=== PATIENT | male | born 1975 | race Caucasian/White ===

== ENCOUNTER 2018-02-08 15:34 | Inpatient (IN) | payer OTHER ==
[~2018-02-08] VITALS: Ht 175.3 cm; Wt 108.8 kg
[2018-02-08] MEDS ORDERED: DEXTROSE 50%-WATER 25 GM/50 ML SYRINGE IVP ONE ×3 (15:51→17:45)
[2018-02-08] MEDS ORDERED: DEXTROSE 10%-WATER 500 ML IV ONE (16:00)
[2018-02-08 16:13] LABS: BASOPHILS % (AUTO) 0.6 % (0.0-2.0); EOSINOPHILS % (AUTO) 1.9 % (1.0-6.0); HEMATOCRIT 49.8 % (41-53); HEMOGLOBIN 17.3 g/dL (13.5-17.5); LYMPHOCYTES # (AUTO) 2.1 K/uL (1.0-4.8); LYMPHOCYTES % (AUTO) 25.2 % (22.0-44.0); MEAN CORPUSCULAR HGB CONC 34.8 G/dL (31.0-37.0); MEAN CORPUSCULAR VOLUME 86 fL (80-100); MONOCYTES # (AUTO) 0.5 K/uL (0.1-1.0); MONOCYTES % (AUTO) 6.4 % (2.0-9.0); NEUTROPHILS # (AUTO) 5.4 K/uL (1.8-7.7); NEUTROPHILS % (AUTO) 65.9 % (40.0-70.0); PLATELET COUNT (AUTO) 229 K/uL (150-450); RED BLOOD CELL COUNT(AUTO) 5.78 MIL/uL (4.50-5.90); RED CELL DISTRIBUTION WIDTH 13.7 % (11.5-14.5)
[2018-02-08 16:19] LABS: GLUCOSE,POINT OF CARE 77 MG/DL (70-110)
[2018-02-08 16:23] LABS: ANION GAP 9 mmol/L (8-16); CARBON DIOXIDE 29 mmol/L (22-29); CHLORIDE 105 mmol/L (98-107); CREATININE 1.09 mg/dL (0.60-1.30); GLOMERULAR FILTR. RATE CALC > 60 mL/min (>60); GLUCOSE,RANDOM 54 mg/dL (70-110); POTASSIUM 3.2 mmol/L (3.5-5.1); SODIUM SERUM 143 mmol/L (136-145); UREA NITROGEN, BLOOD 15 mg/dL (7-18)
[2018-02-08] MEDS ORDERED: VENL-193 PO (16:25)
[2018-02-08] MEDS ORDERED: ATOR40TA28 PO (16:25)
[2018-02-08 16:28] LABS: ALANINE AMINOTRANSFERASE 25 U/L (12-78); ALBUMIN 3.7 g/dL (3.4-5.0); ALKALINE PHOSPHATASE 83 U/L (46-116); BILIRUBIN,TOTAL 0.5 mg/dL (0.1-1.0); TOTAL PROTEIN, SERUM 7.6 g/dL (6.4-8.2)
[2018-02-08 16:30] LABS: ACETAMINOPHEN < 2 mcg/mL (10-30)
[2018-02-08] MEDS ORDERED: INSU100V SQ (16:32)
[2018-02-08] MEDS ORDERED: INSLAN SQ (16:32)
[2018-02-08 16:34] LABS: GLUCOSE,POINT OF CARE 132 MG/DL (70-110)
[2018-02-08 16:45] LABS: ASPARTATE AMINOTRANSFERASE 12 U/L (15-37)
[2018-02-08 16:49] LABS: SALICYLATE < 2.8 mg/dL (2.8-20.0)
[2018-02-08 16:59] LABS: GLUCOSE,POINT OF CARE 79 MG/DL (70-110)
[2018-02-08 17:24] LABS: GLUCOSE,POINT OF CARE 61 MG/DL (70-110)
[2018-02-08] MEDS ORDERED: VENL-68 PO (17:35)
[2018-02-08 17:39] LABS: GLUCOSE,POINT OF CARE 53 MG/DL (70-110)
[2018-02-08 17:58] LABS: GLUCOSE,POINT OF CARE 209 MG/DL (70-110)
[2018-02-08 18:20] LABS: GLUCOSE,POINT OF CARE 157 MG/DL (70-110)
[2018-02-08] MEDS ORDERED: 0.9% SODIUM CHLORIDE 10 ML SYRINGE IVP PRN (18:30)
[2018-02-08] MEDS ORDERED: ACETAMINOPHEN 325 MG TABLET PO PRN ×2 (18:30→19:30)
[2018-02-08] MEDS ORDERED: POTASSIUM CHLORIDE 20 MEQ ER TABLET PO ONE (18:30)
[2018-02-08 18:49] LABS: GLUCOSE,POINT OF CARE 119 MG/DL (70-110)
[2018-02-08 19:09] LABS: GLUCOSE,POINT OF CARE 104 MG/DL (70-110)
[2018-02-08] MEDS ORDERED: IPRATROPIUM BROMIDE 0.5 MG/2.5 ML NEB SOLUTION NEB PRN (19:30)
[2018-02-08] MEDS ORDERED: MAGNESIUM OXIDE 400 MG TABLET PO PRN (19:30)
[2018-02-08] MEDS ORDERED: MAGNESIUM SULFATE 4 GM/WATER 100 ML IV PRN (19:30)
[2018-02-08] MEDS ORDERED: POTASSIUM CHL 10 MEQ/WATER 50 ML IV PRN (19:30)
[2018-02-08] MEDS ORDERED: MAGNESIUM HYDROXIDE SUSPENSION 30 ML UDCUP PO PRN (19:30)
[2018-02-08] MEDS ORDERED: MAGNESIUM SULFATE 2 GM/WATER 50 ML IV PRN (19:30)
[2018-02-08] MEDS ORDERED: ALBUTEROL SULFATE 2.5 MG/0.5 ML NEB SOLUTION NEB PRN (19:30)
[2018-02-08] MEDS ORDERED: HYDROCODONE/ACETAMINOPHEN 5-325 MG TABLET PO PRN (19:30)
[2018-02-08] MEDS ORDERED: ZOLPIDEM TARTRATE 5 MG TABLET PO PRN (19:30)
[2018-02-08] MEDS ORDERED: BISACODYL 10 MG RECTAL RECTAL SUPPOSITORY PR PRN (19:30)
[2018-02-08] MEDS ORDERED: POTASSIUM CHLORIDE 20 MEQ ER TABLET PO PRN (19:30)
[2018-02-08] MEDS ORDERED: ONDANSETRON HCL 4 MG/2 ML VIAL IVP PRN (19:30)
[2018-02-08 19:34] LABS: GLUCOSE,POINT OF CARE 80 MG/DL (70-110)
[2018-02-08 20:00] VITALS: BP 120/67
[2018-02-08] MEDS: DEXTROSE 50%-WATER 25 GM/50 ML SYRINGE IVP PRN (20:10)
[2018-02-08] MEDS: ATORVASTATIN CALCIUM 20 MG TABLET PO SCH (20:45)
[2018-02-08] MEDS: HEPARIN SODIUM,PORCINE 5,000 UNITS/ML VIAL SQ SCH (21:03)
[2018-02-08 21:10] LABS: GLUCOSE,POINT OF CARE 44 MG/DL (70-110)
[2018-02-08 21:10] LABS: GLUCOSE,POINT OF CARE 148 MG/DL (70-110)
[2018-02-09] VITALS: BP 103/54
[2018-02-09 00:53] LABS: GLUCOSE,POINT OF CARE 81 MG/DL (70-110)
[2018-02-09] MEDS: DEXTROSE 50%-WATER 25 GM/50 ML SYRINGE IVP PRN (01:16)
[2018-02-09 04:00] VITALS: BP 124/56
[2018-02-09 04:32] LABS: HEMOGLOBIN 16.1 g/dL (13.5-17.5); LYMPHOCYTES # (AUTO) 1.7 K/uL (1.0-4.8); LYMPHOCYTES % (AUTO) 19.1 % (22.0-44.0); MEAN CORPUSCULAR HEMOGLOBIN 29.9 pg (26.0-34.0); MEAN CORPUSCULAR HGB CONC 34.3 G/dL (31.0-37.0); MEAN CORPUSCULAR VOLUME 87 fL (80-100); MONOCYTES # (AUTO) 0.8 K/uL (0.1-1.0); MONOCYTES % (AUTO) 9.3 % (2.0-9.0); NEUTROPHILS # (AUTO) 6.2 K/uL (1.8-7.7); NEUTROPHILS % (AUTO) 68.6 % (40.0-70.0); PLATELET COUNT (AUTO) 219 K/uL (150-450); RED BLOOD CELL COUNT(AUTO) 5.38 MIL/uL (4.50-5.90); RED CELL DISTRIBUTION WIDTH 13.5 % (11.5-14.5)
[2018-02-09 04:42] LABS: HEMOGLOBIN A1C 6.9 % (4.5-6.2)
[2018-02-09 04:57] LABS: ALANINE AMINOTRANSFERASE 22 U/L (12-78); ALKALINE PHOSPHATASE 66 U/L (46-116); ANION GAP 6 mmol/L (8-16); ASPARTATE AMINOTRANSFERASE 13 U/L (15-37); BILIRUBIN,TOTAL 0.6 mg/dL (0.1-1.0); CALCIUM, TOTAL 8.3 mg/dL (8.8-10.5); CARBON DIOXIDE 28 mmol/L (22-29); CHLORIDE 103 mmol/L (98-107); CHOL/HDL RATIO 2.9 (4.2-7.3); CHOLESTEROL 114 mg/dL (131-200); CREATININE 0.81 mg/dL (0.60-1.30); GLOMERULAR FILTR. RATE CALC > 60 mL/min (>60); GLUCOSE,RANDOM 258 mg/dL (70-110); HDL CHOLESTEROL 39 mg/dL (40-60); LDL CHOL (CALC.) 52 mg/dL (0-130); POTASSIUM 4.2 mmol/L (3.5-5.1); SODIUM SERUM 137 mmol/L (136-145); THYROID STIMULATING HORMONE 0.55 uIU/mL (0.36-3.74); TOTAL PROTEIN, SERUM 6.3 g/dL (6.4-8.2); TRIGLYCERIDES 113 mg/dL (15-150); UREA NITROGEN, BLOOD 12 mg/dL (7-18)
[2018-02-09] MEDS ORDERED: DEXTROSE 50%-WATER 25 GM/50 ML SYRINGE IVP PRN (05:45)
[2018-02-09] MEDS: INSULIN LISPRO 100 UNITS/ML SQ PRN ×4 (07:04→21:44)
[2018-02-09 08:00] VITALS: BP 136/76
[2018-02-09] MEDS: PANTOPRAZOLE SODIUM 40 MG DR TABLET PO SCH (08:28)
[2018-02-09] MEDS: HEPARIN SODIUM,PORCINE 5,000 UNITS/ML VIAL SQ SCH ×2 (08:29→21:00)
[2018-02-09 08:57] LABS: AMPHET/METH SCREEN,URINE NEGATIVE (NEGATIVE); BARBITURATE SCREEN, URINE NEGATIVE (NEGATIVE); BENZODIAZEPINES SCREEN,URINE NEGATIVE (NEGATIVE); CANNABINOID SCREEN,URINE NEGATIVE (NEGATIVE); COCAINE SCREEN,URINE NEGATIVE (NEGATIVE); METHADONE SCREEN, URINE NEGATIVE (NEGATIVE); OPIATE SCREEN,URINE NEGATIVE (NEGATIVE); PHENCYCLIDINE SCREEN,URINE NEGATIVE (NEGATIVE)
[2018-02-09] MEDS ORDERED: VENLAFAXINE HCL 150 MG ER CAPSULE PO SCH (09:00)
[2018-02-09 12:00] VITALS: BP 136/85
[2018-02-09 15:03] LABS: GLUCOSE,POINT OF CARE 310 MG/DL (70-110)
[2018-02-09 16:00] VITALS: BP 167/98
[2018-02-09 19:26] VITALS: BP 128/76
[2018-02-09] MEDS: ATORVASTATIN CALCIUM 20 MG TABLET PO SCH (20:59)
[2018-02-09] MEDS: TraZODone HCL 100 MG TABLET PO SCH (20:59)
[2018-02-10 00:44] LABS: GLUCOSE,POINT OF CARE 257 MG/DL (70-110)
[2018-02-10 04:54] LABS: GLUCOMETER DEV NAME(LOC) 6N 1E; GLUCOSE,POINT OF CARE 291 MG/DL (70-110)
[2018-02-10 05:27] VITALS: BP 109/73
[2018-02-10] MEDS: INSULIN LISPRO 100 UNITS/ML SQ PRN ×4 (06:14→20:01)
[2018-02-10 07:44] VITALS: BP 118/64
[2018-02-10] MEDS: VENLAFAXINE HCL 75 MG ER CAPSULE PO SCH (08:01)
[2018-02-10] MEDS: PANTOPRAZOLE SODIUM 40 MG DR TABLET PO SCH (08:02)
[2018-02-10] MEDS: HEPARIN SODIUM,PORCINE 5,000 UNITS/ML VIAL SQ SCH ×2 (08:02→19:55)
[2018-02-10 11:19] VITALS: BP 123/56
[2018-02-10 12:24] LABS: GLUCOSE,POINT OF CARE 289 MG/DL (70-110)
[2018-02-10 12:24] LABS: GLUCOSE,POINT OF CARE 251 MG/DL (70-110)
[2018-02-10 12:24] LABS: GLUCOSE,POINT OF CARE 264 MG/DL (70-110)
[2018-02-10 12:24] LABS: GLUCOSE,POINT OF CARE 60 MG/DL (70-110)
[2018-02-10 12:24] LABS: GLUCOSE,POINT OF CARE 193 MG/DL (70-110)
[2018-02-10 12:24] LABS: GLUCOSE,POINT OF CARE 189 MG/DL (70-110)
[2018-02-10 15:05] VITALS: BP 116/79
[2018-02-10 15:49] LABS: GLUCOMETER DEV NAME(LOC) 6N 1E; GLUCOSE,POINT OF CARE 317 MG/DL (70-110)
[2018-02-10 15:49] LABS: GLUCOMETER DEV NAME(LOC) 6N 2D; GLUCOSE,POINT OF CARE 310 MG/DL (70-110)
[2018-02-10 17:54] LABS: GLUCOMETER DEV NAME(LOC) 6N 2D; GLUCOSE,POINT OF CARE 374 MG/DL (70-110)
[2018-02-10 19:32] VITALS: BP 127/79
[2018-02-10] MEDS: ATORVASTATIN CALCIUM 20 MG TABLET PO SCH (19:55)
[2018-02-10] MEDS: TraZODone HCL 100 MG TABLET PO SCH (19:55)
[2018-02-10 20:18] LABS: GLUCOMETER DEV NAME(LOC) 6N 2D; GLUCOSE,POINT OF CARE 395 MG/DL (70-110)
[2018-02-10 23:20] VITALS: BP 118/76
[2018-02-11 04:20] VITALS: BP 108/74
[2018-02-11] MEDS: INSULIN LISPRO 100 UNITS/ML SQ PRN ×4 (06:10→20:27)
[2018-02-11 06:58] LABS: GLUCOMETER DEV NAME(LOC) 6N 2D; GLUCOSE,POINT OF CARE 344 MG/DL (70-110)
[2018-02-11 07:31] VITALS: BP 118/80
[2018-02-11] MEDS: HEPARIN SODIUM,PORCINE 5,000 UNITS/ML VIAL SQ SCH ×2 (08:27→20:26)
[2018-02-11] MEDS: VENLAFAXINE HCL 75 MG ER CAPSULE PO SCH (08:27)
[2018-02-11] MEDS: PANTOPRAZOLE SODIUM 40 MG DR TABLET PO SCH (08:27)
[2018-02-11 12:04] LABS: MAGNESIUM 1.8 mg/dL (1.80-2.40); POTASSIUM 4.5 mmol/L (3.5-5.1)
[2018-02-11 12:07] VITALS: BP 108/70
[2018-02-11 15:40] VITALS: BP 123/74
[2018-02-11 20:13] VITALS: BP 110/76
[2018-02-11] MEDS: ATORVASTATIN CALCIUM 20 MG TABLET PO SCH (20:26)
[2018-02-11] MEDS: TraZODone HCL 100 MG TABLET PO SCH (20:26)
[2018-02-11] MEDS ORDERED: INSULIN GLARGINE,HUM.REC.ANLOG 100 UNITS/ML SQ SCH (21:00)
[2018-02-11 22:43] LABS: GLUCOMETER DEV NAME(LOC) 6N 1E; GLUCOSE,POINT OF CARE 343 MG/DL (70-110)
[2018-02-11 22:44] LABS: GLUCOMETER DEV NAME(LOC) 6N 1E; GLUCOSE,POINT OF CARE 421 MG/DL (70-110)
[2018-02-12 00:25] VITALS: BP 121/74
[2018-02-12 05:41] VITALS: BP 107/68
[2018-02-12] MEDS: INSULIN LISPRO 100 UNITS/ML SQ PRN ×6 (06:34→20:36)
[2018-02-12 07:13] LABS: GLUCOMETER DEV NAME(LOC) 6N 1E; GLUCOSE,POINT OF CARE 344 MG/DL (70-110)
[2018-02-12 07:32] VITALS: BP 106/76
[2018-02-12] MEDS: VENLAFAXINE HCL 75 MG ER CAPSULE PO SCH (08:44)
[2018-02-12] MEDS: HEPARIN SODIUM,PORCINE 5,000 UNITS/ML VIAL SQ SCH ×2 (08:45→20:36)
[2018-02-12] MEDS: PANTOPRAZOLE SODIUM 40 MG DR TABLET PO SCH (08:45)
[2018-02-12 11:01] VITALS: BP 117/65
[2018-02-12] MEDS ORDERED: INSULIN GLARGINE,HUM.REC.ANLOG 100 UNITS/ML SQ ONE (12:15)
[2018-02-12] MEDS ORDERED: INSULIN LISPRO 100 UNITS/ML SQ ONE (12:30)
[2018-02-12 15:10] VITALS: BP 112/72
[2018-02-12 17:20] LABS: GLUCOMETER DEV NAME(LOC) 6N 1E; GLUCOSE,POINT OF CARE 257 MG/DL (70-110)
[2018-02-12 19:34] VITALS: BP 123/75
[2018-02-12] MEDS: ATORVASTATIN CALCIUM 20 MG TABLET PO SCH (20:36)
[2018-02-12] MEDS: TraZODone HCL 100 MG TABLET PO SCH (20:36)
[2018-02-12] MEDS ORDERED: INSULIN GLARGINE,HUM.REC.ANLOG 100 UNITS/ML SQ SCH (21:00)
[2018-02-12 21:19] LABS: GLUCOMETER DEV NAME(LOC) 6N 2D; GLUCOSE,POINT OF CARE 393 MG/DL (70-110)
[2018-02-12 21:19] LABS: GLUCOMETER DEV NAME(LOC) 6N 2D; GLUCOSE,POINT OF CARE 278 MG/DL (70-110)
[2018-02-12 21:20] LABS: GLUCOMETER DEV NAME(LOC) 6N 2D; GLUCOSE,POINT OF CARE 420 MG/DL (70-110)
[2018-02-12 22:59] LABS: GLUCOMETER DEV NAME(LOC) 6N 1E; GLUCOSE,POINT OF CARE 439 MG/DL (70-110)
[2018-02-12 22:59] LABS: GLUCOMETER DEV NAME(LOC) 6N 1E; GLUCOSE,POINT OF CARE 348 MG/DL (70-110)
[2018-02-13 00:15] VITALS: BP 111/72
[2018-02-13 04:37] VITALS: BP 108/62
[2018-02-13] MEDS: INSULIN LISPRO 100 UNITS/ML SQ PRN ×2 (05:41→11:47)
[2018-02-13 07:04] LABS: GLUCOMETER DEV NAME(LOC) 6N 2D; GLUCOSE,POINT OF CARE 297 MG/DL (70-110)
[2018-02-13 08:31] VITALS: BP 124/74
[2018-02-13] MEDS: VENLAFAXINE HCL 75 MG ER CAPSULE PO SCH (08:47)
[2018-02-13] MEDS: PANTOPRAZOLE SODIUM 40 MG DR TABLET PO SCH (08:47)
[2018-02-13] MEDS: HEPARIN SODIUM,PORCINE 5,000 UNITS/ML VIAL SQ SCH ×2 (08:47→21:54)
[2018-02-13 11:34] VITALS: BP 116/78
[2018-02-13 12:25] LABS: GLUCOMETER DEV NAME(LOC) 6N 1E; GLUCOSE,POINT OF CARE 318 MG/DL (70-110)
[2018-02-13 16:03] VITALS: BP 146/79
[2018-02-13] MEDS ORDERED: INSULIN LISPRO 100 UNITS/ML SQ PRN (18:00)
[2018-02-13] MEDS ORDERED: INSULIN LISPRO 100 UNITS/ML SQ ONE (18:00)
[2018-02-13] MEDS ORDERED: DEXTROSE 50%-WATER 25 GM/50 ML SYRINGE IVP PRN (18:00)
[2018-02-13 20:04] LABS: GLUCOMETER DEV NAME(LOC) 6N 2D; GLUCOSE,POINT OF CARE 531 MG/DL (70-110)
[2018-02-13 20:21] VITALS: BP 123/57
[2018-02-13] MEDS: TraZODone HCL 100 MG TABLET PO SCH (21:53)
[2018-02-13] MEDS: ATORVASTATIN CALCIUM 20 MG TABLET PO SCH (21:54)
[2018-02-13] MEDS: INSULIN GLARGINE,HUM.REC.ANLOG 100 UNITS/ML SQ SCH (21:58)
[2018-02-14] VITALS (7 sets, daily range): BP systolic 100–128; BP diastolic 62–83
[2018-02-14 06:15] LABS: GLUCOMETER DEV NAME(LOC) 6N 1E; GLUCOSE,POINT OF CARE 64 MG/DL (70-110)
[2018-02-14] MEDS: VENLAFAXINE HCL 75 MG ER CAPSULE PO SCH (08:29)
[2018-02-14] MEDS: PANTOPRAZOLE SODIUM 40 MG DR TABLET PO SCH (08:29)
[2018-02-14] MEDS: HEPARIN SODIUM,PORCINE 5,000 UNITS/ML VIAL SQ SCH ×2 (08:30→21:02)
[2018-02-14] MEDS: INSULIN GLARGINE,HUM.REC.ANLOG 100 UNITS/ML SQ SCH ×2 (09:20→21:10)
[2018-02-14] MEDS ORDERED: DEXTROSE 50%-WATER 25 GM/50 ML SYRINGE IVP PRN ×2 (11:15→11:45)
[2018-02-14 11:39] LABS: GLUCOMETER DEV NAME(LOC) 6N 2D; GLUCOSE,POINT OF CARE 369 MG/DL (70-110)
[2018-02-14 11:39] LABS: GLUCOMETER DEV NAME(LOC) 6N 2D; GLUCOSE,POINT OF CARE 218 MG/DL (70-110)
[2018-02-14 11:39] LABS: GLUCOMETER DEV NAME(LOC) 6N 2D; GLUCOSE,POINT OF CARE 153 MG/DL (70-110)
[2018-02-14 11:40] LABS: GLUCOMETER DEV NAME(LOC) 6N 2D; GLUCOSE,POINT OF CARE 376 MG/DL (70-110)
[2018-02-14] MEDS: INSULIN LISPRO 100 UNITS/ML SQ PRN ×3 (12:00→21:11)
[2018-02-14 17:39] LABS: GLUCOMETER DEV NAME(LOC) 6N 1E; GLUCOSE,POINT OF CARE 354 MG/DL (70-110)
[2018-02-14] MEDS: TraZODone HCL 100 MG TABLET PO SCH (21:01)
[2018-02-14] MEDS: ATORVASTATIN CALCIUM 20 MG TABLET PO SCH (21:02)
[2018-02-14 23:34] LABS: GLUCOMETER DEV NAME(LOC) 6N 1E; GLUCOSE,POINT OF CARE 290 MG/DL (70-110)
[2018-02-15 04:00] VITALS: BP 115/71
[2018-02-15] MEDS: INSULIN LISPRO 100 UNITS/ML SQ PRN ×2 (06:26→11:58)
[2018-02-15 06:45] LABS: GLUCOMETER DEV NAME(LOC) 6N 2D; GLUCOSE,POINT OF CARE 302 MG/DL (70-110)
[2018-02-15 07:24] VITALS: BP 120/64
[2018-02-15] MEDS: VENLAFAXINE HCL 75 MG ER CAPSULE PO SCH (08:24)
[2018-02-15] MEDS: HEPARIN SODIUM,PORCINE 5,000 UNITS/ML VIAL SQ SCH (08:25)
[2018-02-15] MEDS: PANTOPRAZOLE SODIUM 40 MG DR TABLET PO SCH (08:25)
[2018-02-15] MEDS: INSULIN GLARGINE,HUM.REC.ANLOG 100 UNITS/ML SQ SCH (08:37)
[2018-02-15 11:25] VITALS: BP 123/83
[2018-02-15 14:14] LABS: GLUCOMETER DEV NAME(LOC) 6N 2D; GLUCOSE,POINT OF CARE 289 MG/DL (70-110)
== END 2018-02-15 12:40 | disposition home or self-care (01) | DRG 812 ==
LOC: EMS 15:35 → ICU 18:15 → 6N 02-09 19:00
PROVIDERS: ADMIT Internal Medicine; ATTEND Internal Medicine
DX: T38.3X2A Poisoning by insulin and oral hypoglycemic [antidiabetic] drugs, intentional self-harm, initial encounter (principal); E11.649 Type 2 diabetes mellitus with hypoglycemia without coma; F33.2 Major depressive disorder, recurrent severe without psychotic features; E16.0 Drug-induced hypoglycemia without coma; F17.210 Nicotine dependence, cigarettes, uncomplicated; E78.00 Pure hypercholesterolemia, unspecified; E66.9 Obesity, unspecified; E78.5 Hyperlipidemia, unspecified; T38.3X5A Adverse effect of insulin and oral hypoglycemic [antidiabetic] drugs, initial encounter; E87.6 Hypokalemia; J44.9 Chronic obstructive pulmonary disease, unspecified; G47.33 Obstructive sleep apnea (adult) (pediatric); Z91.5 Personal history of self-harm; Z79.4 Long term (current) use of insulin; Y92.89 Other specified places as the place of occurrence of the external cause
CPT/HCPCS: 83036; 83735; 84132; 84443; 87081; 93005; 96365; 96366; 96376; 99291; G0480; G0481; J1644; J1815